=== PATIENT | female | born 1995 | race Caucasian/White ===

== ENCOUNTER 2017-10-05 11:52 | Emergency (ER) | payer MEDICAID ==
[~2017-10-05] VITALS: Ht 165.1 cm; Wt 72.6 kg
[2017-10-05 12:16] VITALS: BP 125/77; Ht 165.1 cm; Wt 72.6 kg
== END 2017-10-05 13:54 | disposition home or self-care (01) ==
LOC: ED 11:52
DX: S61.306A Unspecified open wound of right little finger with damage to nail, initial encounter (principal); W23.0XXA Caught, crushed, jammed, or pinched between moving objects, initial encounter; Y93.89 Activity, other specified; Y92.89 Other specified places as the place of occurrence of the external cause; Y99.8 Other external cause status
CPT/HCPCS: 90715

== ENCOUNTER 2019-02-19 06:48 | Emergency (ER) | payer MEDICAID ==
[~2019-02-19] VITALS: Ht 162.6 cm; Wt 67.1 kg
[2019-02-19 06:52] VITALS: BP 118/81; Ht 162.6 cm; Wt 67.1 kg
== END 2019-02-19 07:41 | disposition home or self-care (01) ==
LOC: ED 06:48
DX: S61.511A Laceration without foreign body of right wrist, initial encounter (principal); J45.909 Unspecified asthma, uncomplicated; F41.9 Anxiety disorder, unspecified; W22.8XXA Striking against or struck by other objects, initial encounter; Y93.89 Activity, other specified; Y92.89 Other specified places as the place of occurrence of the external cause; Y99.8 Other external cause status
CPT/HCPCS: 90715

== ENCOUNTER 2019-02-26 10:43 | Emergency (ER) | payer MEDICAID ==
[~2019-02-26] VITALS: Ht 162.6 cm; Wt 65.8 kg
[2019-02-26 10:50] VITALS: BP 111/72; Ht 162.6 cm; Wt 65.8 kg
== END 2019-02-26 14:19 | disposition left against medical advice (07) ==
LOC: ED 10:43
DX: Z53.21 Procedure and treatment not carried out due to patient leaving prior to being seen by health care provider (principal)

== ENCOUNTER 2019-04-16 12:16 | Emergency (ER) | payer MEDICAID | END 2019-04-16 13:38 | disposition left against medical advice (07) | LOC: ED 12:16 | DX: Z53.21 Procedure and treatment not carried out due to patient leaving prior to being seen by health care provider (principal) ==

== ENCOUNTER 2019-06-28 22:46 | Emergency (ER) | payer MEDICAID ==
[~2019-06-28] VITALS: Ht 162.6 cm; Wt 68.5 kg
[2019-06-28 22:51] VITALS: Ht 162.6 cm; Wt 68.5 kg
[2019-06-29 01:36] VITALS: BP 114/79
== END 2019-06-29 01:36 | disposition home or self-care (01) ==
LOC: ED 22:46
DX: S02.2XXA Fracture of nasal bones, initial encounter for closed fracture (principal); J45.909 Unspecified asthma, uncomplicated; F41.9 Anxiety disorder, unspecified; W50.0XXA Accidental hit or strike by another person, initial encounter; Y93.89 Activity, other specified; Y92.89 Other specified places as the place of occurrence of the external cause; Y99.8 Other external cause status